=== PATIENT | male | born 1975 | race Hispanic/Latino ===

== ENCOUNTER 2017-10-09 18:54 | Emergency (ER) | payer OTHER, BC ==
[2017-10-09 22:02] VITALS: BP 182/122
[2017-10-09] MEDS ORDERED: NAPROSYN PO ONE (22:59)
[2017-10-09] MEDS ORDERED: VALIUM PO ONE (23:00)
[2017-10-09] MEDS ORDERED: XYLOCAINE 1% MPF 5 mL INFILTRATI ONE (23:00)
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
[2017-10-10] MEDS ORDERED: TRIPLE ANTIBIOTIC TP ONE (00:01)
== END 2017-10-10 00:17 | disposition home or self-care (01) ==
LOC: ED 18:54
DX: S60.552A Superficial foreign body of left hand, initial encounter (principal); S16.1XXA Strain of muscle, fascia and tendon at neck level, initial encounter; V49.49XA Driver injured in collision with other motor vehicles in traffic accident, initial encounter; Y93.89 Activity, other specified; Y92.89 Other specified places as the place of occurrence of the external cause; Y99.8 Other external cause status
CPT/HCPCS: 99282